=== PATIENT | male | born 1940 | race Caucasian/White ===

== ENCOUNTER 2017-02-21 08:49 | Emergency (ER) | payer MEDICARE, OTHER ==
--- NOTE | ~2017-02-21 | ER ---
ADMIT: 02/21/2017 RM/LOC: ER [facility] MR#: [id number] ACC#: [id number] [address] [id number] HYACINTHTEZE Lisa [address] [place] [address] Emergency Room Report SEX: M AGE: 76 : 1940 DATE: 02/21/2017 CHIEF COMPLAINT: Difficulty with speech, confusion. HISTORY OF PRESENT ILLNESS: The patient is a 76-year-old male with history of CVA a year ago, whom brings in for difficulty with speech and what seems like some confusion. She states he went to bed last night, was fine with no new symptoms but when she woke up this morning, she noted that he seemed like he was somewhat confused and had difficulty getting out the words he wanted to say. His stroke that he had a year ago, he had problems with aphasia at that time but also had some slurred speech and facial weakness. She does not report any facial weakness that she can see or any other weakness. The patient is not able to give me a good history due to his aphasia. We do not know time of onset since the patient was apparently fine when he went to bed and he cannot provide history for me when this began, and noticed that it was present when she woke up about 45 minutes prior to arrival in our ER. REVIEW OF SYSTEMS: Ten-point review of systems is done and otherwise negative except as in HPI. PAST MEDICAL HISTORY: 1. Hypertension. 2. Hyperlipidemia. 3. Previous stroke. The patient does have a pacemaker that was placed last year at the time of his stroke. MEDICATIONS: He is on Eliquis. See nurse's note for remainder of medications. He did recently have a change in his dose of metoprolol from 25 to 50 that was made about a week and a half ago. ALLERGIES: NO KNOWN ALLERGIES. SOCIAL HISTORY: The patient lives with his . Denies smoking, drug, or alcohol use. PHYSICAL EXAMINATION: VITAL SIGNS: Blood pressure 138/81, pulse 72, respirations 20, temp 97.3, sats 98% on room air. GENERAL: The patient is alert. HEENT: Head is atraumatic. Pupils are equal, round, and reactive to light. Extraocular muscles are intact. I see no facial weakness. NECK: Supple. Airway is patent. LUNGS: Clear to auscultation. HEART: Regular rate and rhythm. ABDOMEN: Soft, nontender. EXTREMITIES: The patient can move all extremities spontaneously. Strength is 5/5. He has no drift noted. Sensation appears to be intact in all four ADMIT: 02/21/2017 RM/LOC: [facility] MR#: [id number] [address] [place] [id number] HYACINTH HERON [address] [place] [address] Emergency Room Report SEX: M AGE: 76 : 1940 extremities. He has no pedal edema. No calf tenderness. SKIN: No skin lesions or rashes are noted. LABORATORY AND X-RAY DATA: Chest x-ray, I do not see anything acute. CT head, negative for acute. CBC is normal. Chemistries show BUN of 35, glucose 123, creatinine of 2.0 which he has had some elevated creatinine's in the past, and INR is 1.0. EKG shows a paced rhythm, rate of 70, otherwise no acute findings. EMERGENCY DEPARTMENT COURSE: We did do a stroke routine on the patient, but my concern at this time is we do not know time of onset and there is no reliable way to obtain that. The results of our workup here did not show any acute intracranial findings on his head CT, but I do believe based on his symptoms that he has likely had another stroke. I contacted his primary care physician, Dr. Sutton, for admission but Dr. Sutton would prefer the patient had Neurology on board, we do not have Neurology available at our facility at this time, I contacted [facility] and spoke to Dr. Farah, the hospitalist, who states they do use Neurology Telehealth there. She has accepted the patient to come to her facility. At this time, we are going to hold off heparin after discussing with Dr. Farah as the patient has been on Eliquis, I believe it likely just increases risk of hemorrhagic transformation. The patient will be transferred to [facility] for further management of what I believe is acute stroke. The patient is unchanged from his presentation at time of transfer with diagnoses of: 1. Aphasia. 2. Cerebrovascular accident. Sergei Morales MD/ valerio JOB #: [id number] CC: Cristino Obregon MD, Attending Physician UNKNOWN, Family Physician
[~2017-02-21 08:49] MED LIST: ASPIR 8181 MG PO; ELIQUIS5 MG PO; FISH OIL 1,2001 EACH PO; KLOR-CON M2020 ME1 PO; LIPITOR DPS40 MG PO; MAALOX DPS30 ML PO; NORVASC DPS10 MG PO; SURFAK DPS240 MG PO; TYLENOL DPS325 MG PO; TYLENOL EXTRA500 M1 PO; ZESTRIL DPS20 MG PO; [UNRECOGNIZED DRUG - OTHER] PO
--- NOTE | 2017-02-22 10:50 | ER ---
ADMIT: 02/21/2017 RM/LOC: ER [facility] MR#: [id number] [address] [id number] HERON CLAROS [address] [place] [address] Emergency Room Report SEX: M AGE: 76 : 1940 DATE: 02/21/2017 ADDENDUM: As we do not have Neurology switchboard receptionist here, I did speak to Dr. Sutton, he was uncomfortable keeping the patient here without Neurology available in consultation. I talked to the family, they preferred going to [facility] in [place], so we did contact them. I spoke to Dr. Farah who is hospitalist there who states they do have Telehealth Neurology available there. They have accepted the patient and reason for transfer at this time is this patient needs Neurology consultation, we do not have it available at this facility and the patient's primary care physician did not feel comfortable having him stay here at this time. Sergei Morales MD/ valerio JOB #: [id number] CC: Cristino Obregon MD, Attending Physician
== END 2017-02-21 11:33 ==
LOC: ER 08:49
DX: I63.9 Cerebral infarction, unspecified (principal); R47.01 Aphasia; I10 Essential (primary) hypertension; E78.5 Hyperlipidemia, unspecified; Z95.0 Presence of cardiac pacemaker; Z79.899 Other long term (current) drug therapy

== ENCOUNTER 2017-03-26 07:08 | Day surgery (SDC) | payer MEDICARE, OTHER ==
[~2017-03-26] VITALS: Ht 167.6 cm; Wt 99.3 kg
--- NOTE | ~2017-03-26 | ECH ---
Transesophageal Echocardiography Report (JORGE) Demographics Patient Name HERON CLAROS Date of Study 03/26/2017 Patient Number [id number] Visit Number [id number] Date of 1940 Room Number Accession Number [id number] Gender Male Age 76 year(s) Referring Herman Marques MD Solvent Plant Treater Jes Arzola [facility] Physician Physician Interpreting Pee Weller Header Dock Physician MD Supervising Ordering Physician Purvi BROWN MD/P Nurse Bk Antonio Stress Supervisor [employer] The procedure was explained in detail to the patient. Risks, complications and alternative treatments were reviewed. Written consent was obtained. Conclusions Summary The estimated left ventricular ejection fraction is 60-65%. Small left atrial appendage without thrombus. Lipomatous hypertrophy of the interatrial septum. No evidence of shunt at the atrial level. Mild atheroma of aorta. No cardiac source of emboli is present. Procedure Type of Study JORGE procedure Procedure Date Date: 03/26/2017 Start: 09:02 AM Technical Quality: Adequate visualization Indications:CVA. Appropriate Use Criteria: 9 Height: 66 inches Weight: 218.26 pounds BSA: 2.08 m Rhythm: Within normal limits HR: 70 bpm BP: 131/78 mmHg Procedure Informed Consent Procedure consent form obtained. - See IV sedation record Allergies - No known allergies. Findings Left Atrium There is no thrombus in the left atrial appendage. There is no evidence of patent foramen ovale or atrial septal defect by color Doppler. Bubble study was done, there is no evidence for a PFO or ASD. Mitral Valve Normal mitral valve structure and function. Mild mitral regurgitation by color Doppler. Aortic Valve The aortic valve is sclerotic. Tricuspid Valve Normal tricuspid valve structure and function. Mild tricuspid regurgitation by color Doppler. Pulmonic Valve The pulmonic valve is not well visualized. Miscellaneous Mild atheroma seen in aorta. Signature
== END 2017-03-26 10:39 | disposition home or self-care (01) ==
LOC: SSS 07:08
DX: I63.9 Cerebral infarction, unspecified (principal); I70.0 Atherosclerosis of aorta; I44.1 Atrioventricular block, second degree; I10 Essential (primary) hypertension; I48.0 Paroxysmal atrial fibrillation; I49.5 Sick sinus syndrome; R73.03 Prediabetes; Z45.018 Encounter for adjustment and management of other part of cardiac pacemaker; M19.90 Unspecified osteoarthritis, unspecified site; Z79.899 Other long term (current) drug therapy